=== PATIENT | male | born 1990 | race Caucasian/White ===

== ENCOUNTER 2020-09-06 00:33 | Observation (INO) ==
[2020-09-06] MEDS ORDERED: 0.9 % Sodium Chloride 1,000 ML IVC SCH (02:45)
[2020-09-06] MEDS ORDERED: Ondansetron 4 MG/2 ML VIAL IVP PRN ×3 (02:46→10:33)
[2020-09-06] MEDS ORDERED: Piperacillin/Tazobactam 3.375 GM in 0.9 % Sodium Chloride Mini Bag 100 ML IVPB SCH ×2 (04:00→12:00)
[2020-09-06] MEDS ORDERED: *HR* HYDROmorphone PF 0.5 MG/0.5 ML SYRINGE IVP PRN (07:50)
[2020-09-06] MEDS ORDERED: *HR* Meperidine 25 MG/ML SYRINGE IVP PRN (07:50)
[2020-09-06] MEDS ORDERED: *HR* Midazolam HCl 5 MG/5 ML VIAL IVP ONE (08:19)
[2020-09-06] MEDS ORDERED: Lidocaine -MPF 2% 2 ML VIAL ONE (08:20)
[2020-09-06] MEDS ORDERED: *HR* FentaNYL (PF) 100 MCG/2 ML VIAL ONE (08:20)
[2020-09-06] MEDS ORDERED: *HR* Propofol 200 MG/20 ML VIAL IVP ONE (08:20)
[2020-09-06] MEDS ORDERED: *HR* Rocuronium Bromide 50 MG/5 ML VIAL ONE (08:20)
[2020-09-06] MEDS ORDERED: Ondansetron 4 MG/2 ML VIAL ONE (08:20)
[2020-09-06] MEDS ORDERED: Lidocaine HCL 4 ML Topical Solution (Laryng-O-Jet Kit Sterile Pak) TP ONE (08:22)
[2020-09-06] MEDS ORDERED: Acetaminophen IV 1,000 MG/100 ML BAG IVPB ONE (08:31)
[2020-09-06] MEDS ORDERED: *HR* OxyCODONE/APAP 5/325 TABLET PO PRN (10:33)
[2020-09-06] MEDS ORDERED: Ketorolac 15 MG/ML VIAL IVP SCH (12:00)
[2020-09-06 13:29] VITALS: BP 126/65
== END 2020-09-06 16:27 | disposition home or self-care (01) ==
LOC: 3ANU
PROVIDERS: ADMIT Surgery; ATTEND Surgery